=== PATIENT | female | born 1960 | race Caucasian/White ===

== ENCOUNTER 2021-05-14 08:36 | Outpatient (CLI) | payer BC | END 2021-05-14 08:37 | disposition home or self-care (01) | LOC: CSHMAMMO 08:36 | PROVIDERS: ATTEND Obstetrics & Gynecology | DX: Z12.31 Encounter for screening mammogram for malignant neoplasm of breast (principal) | CPT/HCPCS: 77063; 77067 ==

== ENCOUNTER 2022-05-26 12:31 | Outpatient (CLI) | payer BC | END 2022-05-26 12:32 | disposition home or self-care (01) | LOC: CSHMAMMO 12:31 | PROVIDERS: ATTEND Obstetrics & Gynecology | DX: Z12.31 Encounter for screening mammogram for malignant neoplasm of breast (principal) | CPT/HCPCS: 77063; 77067 ==

== ENCOUNTER 2023-07-28 14:57 | Outpatient (CLI) | payer BC | END 2023-07-28 14:58 | disposition home or self-care (01) | LOC: CSHMAMMO 14:57 | PROVIDERS: ATTEND Obstetrics & Gynecology | DX: Z12.31 Encounter for screening mammogram for malignant neoplasm of breast (principal); M85.89 Other specified disorders of bone density and structure, multiple sites | CPT/HCPCS: 77063; 77067; 77080 ==

== ENCOUNTER 2024-07-30 08:39 | Outpatient (CLI) | payer MEDICARE, BC | END 2024-07-30 08:40 | disposition home or self-care (01) | LOC: CSHMAMMO 08:39 | PROVIDERS: ATTEND Obstetrics & Gynecology | DX: Z12.31 Encounter for screening mammogram for malignant neoplasm of breast (principal) | CPT/HCPCS: 77063; 77067 ==